=== PATIENT | female | born 1960 | race Caucasian/White ===

== ENCOUNTER 2025-10-29 08:39 | Outpatient (CLI) | payer BC, MEDICARE ==
--- NOTE | 2025-10-30 00:09 | CONSULTATION ---
DATE OF CONSULTATION: 10/29/2025 DICTATING PHYSICIAN: Gayle Dumont M.S., [facility] SUPERINTENDENT MODIFIED BARIUM SWALLOW STUDY REPORT REFERRING PHYSICIAN: Valente Jacobson M.D. HISTORY OF PRESENT ILLNESS: The patient is a 65-year-old female and consents to this evaluation. In history obtained from the patient and medical records, the patient reports symptoms of dysphagia, including feeling as if she has things that get stuck in her throat that she cannot clear. She notes that it is difficult for her to swallow her medications and dry items such as crackers or bread as well as gummies. She feels as if they stick in her throat and she has to do a hard swallow in order to push them down. The patient has 6 thyroid nodules, 3 on the right, 2 on the left, and 1 in the middle. A US soft tissue of the head and neck revealed a 16 mm nodule on the right thyroid on 07/22/25. 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 The patient denies coughing on liquids at this time. CURRENT DIET: In terms of caffeine, the patient averages half a cup of coffee on a daily basis and will occasionally have tea. She does not drink soda. She does not utilize tobacco products. In terms of alcohol, she has 1 cocktail once monthly and wine once weekly. She has chocolate about twice monthly. In terms of dairy products, the patient utilizes either cashew or almond milk rather than cow's milk. She does have cheese in her sandwiches or melted on her food items, but this is not on a daily basis. A typical breakfast consists of yogurt, fruit, and granola or whole grain cereal with a plant-based milk or toast. She does not snack in the morning. She rarely has lunch, but if she does, it is vegetables with hummus or pretzels. She does not snack in the afternoon. Dinner is eaten between 5:30-6:00 p.m. and may be chicken, fish, or pork with vegetables such as broccoli, salad, or asparagus, or she will have rice. She then has a dessert about 1 hour after dinner at times, which may be 10 m&ms, a square of chocolate or a cameron snap cookie. She goes to bed at 10:00 p.m. MEDICATIONS: Aspirin 325 mg once daily orally, Lipitor 20 mg once daily orally, carvedilol 10 mg once daily orally, flecainide 15 mg twice daily orally, multivitamin once daily orally, COQ10 once daily orally. PARAMETERS: The patient is seated in a lateral 90-degree view and administered the usual protocol of thin and nectar thick liquids, puree and solid consistencies as well as self-regulated boluses of thin liquids from a cup. RESULTS: The patient was easily able to transfer the bolus from the anterior to the posterior oral cavity. There did not appear to be any difficulty with strength or range of motion of the tongue. There was a mild residue on the tongue base following the initial swallow of boluses. In the pharyngeal stage of the swallow, tongue base retraction was mildly reduced. Swallow initiation was within functional limits. Anterior movement of the posterior pharyngeal wall was observed. Elevation of the hyothyroid complex was accomplished with mildly reduced epiglottic inversion and full anterior and superior movement of the hyoid. There was trace pharyngeal residue noted after the tail of the bolus passed. PES opening was within functional limits. In terms of airway safety, the patient did demonstrate with penetration on 1 administration of the 5 mL thin liquid bolus that was automatically cleared. ANTERIOR, POSTERIOR VIEW: In the AP plane, the bolus split symmetrically between the piriform sinuses. There was noted to be a curvature of the esophagus to the right side at the level of the heart and that below that curvature, the patient would have some proximal movement of the boluses. IMPRESSION: The patient demonstrates what appears to be a [id number] pharyngeal esophageal stage swallowing disorder characterized by mildly reduced tongue base retraction, a slight curvature of the esophagus to the right at the level of the heart, and proximal movement below that level of curvature. Due to the patient's diet, there is a potential that the proximal movement is more due to the curvature of the esophagus that was observed. DIAGNOSES: * R13.14, dysphagia pharyngoesophageal phase. * K21.9, gastroesophageal reflux disease. PATIENT EDUCATION: Immediately following modified barium swallow study, the patient was able to view the results. The patient was able to see how the current status of the swallowing mechanism decreases her ability to swallow normally. She was educated on dietary modifications for laryngopharyngeal reflux disease and with this education, it was identified that the patient does not have very many of these food items on a regular basis. She was also educated on the effortful swallow exercise with written handout provided regarding the mildly reduced tongue base retraction. This tongue base retraction reduction does not appear to be impacting the swallow significantly at this time. RECOMMENDATIONS: * It is recommended that the patient follow the aforementioned laryngopharyngeal reflux disease precautions in the form of dietary modification. * It is recommended that the patient follow up with either an esophagram or upper GI regarding the curvature of the esophagus to the right at the level of the heart. This may be something such as a hiatal hernia, but further visualization would be needed for diagnosis. LONG-TERM GOALS: The patient will maintain adequate hydration/nutrition with optimum safety and efficiency of swallow function on p.o. intake without overt signs and symptoms of aspiration for the highest possible diet level. FUNCTIONAL ORAL INTAKE: The FOIS was administered to establish and document a change in the functional eating activities of this patient over time. This is a 7-point scale with 1 indicating no oral intake and totally tube dependent and 7 indicating total oral intake with no restrictions. This patient received a 6, which indicates she has a total oral diet with multiple consistencies without special preparation, but with specific food limitations and precautions. G-CODE: [id number]. Thank you very much for asking me to participate in the care of this kind patient. Should you have any questions regarding this evaluation or recommendations, please do not hesitate to contact me at [phone]. During this examination, 2 minutes and 45 seconds of fluoroscopy time and 17.22 CAK mGy were utilized. Gayle Dumont M.S., [facility] SUPERINTENDENT TID: [id number] RECEIPT: [id number] JOSH CLAROS
== END 2025-10-29 23:59 | disposition home or self-care (01) ==
LOC: RAD 08:39
PROVIDERS: ATTEND Otolaryngology
DX: R13.14 Dysphagia, pharyngoesophageal phase (principal); K21.9 Gastro-esophageal reflux disease without esophagitis; R05.9 Cough, unspecified
CPT/HCPCS: 74230